=== PATIENT | male | born 1980 | race Caucasian/White ===

== ENCOUNTER → 2017-05-25 | Outpatient (CLI) | payer OTHER ==
[~2017-05-25] VITALS: Ht 189.2 cm; Wt 100.8 kg
[2017-05-25 15:44] VITALS: BP 122/74; PULSE 67; Ht 189.2 cm; Wt 100.8 kg
== END | disposition home or self-care (01) ==
LOC: C.NEUR 14:15
PROVIDERS: ATTEND Internal Medicine Pulmonary Disease
DX: G47.33 Obstructive sleep apnea (adult) (pediatric) (principal)

== ENCOUNTER → 2017-07-04 | Outpatient (CLI) | payer OTHER ==
--- NOTE | 2017-07-09 10:41 | Sleep Study ---
Sleep Study Report Date of Service: 07/04/2017 Sleep Study Report CLINICAL DATA: The patient is a 37-year-old male with a history of snoring, observed apnea, and fatigue. His Pat[place] Sleepiness Scale score is 8. His BMI is 28.14. On the evening of 07/04/2017 a home sleep apnea test was performed using the [employer] type 3 monitor. RECORDING RESULTS: The total recording time was 10:00 a.m.. Patient's estimated sleep time was 8: 00 a.m.. RESPIRATORY DATA: The patient had a total of 4 respiratory events, all hypopneas. Hypopneas were scored according to the 4% desaturation rule. The maximum respiratory event was 42 seconds. The apnea-hypopnea index was 0.5. This would suggest no significant sleep apnea. OXIMETRY DATA: The mean saturation for the night was 92%. The minimum saturation was 82%. There was a total of 12 minutes with saturations less than 89%. HEART RATE DATA: The minimum heart rate was 42 per minute. The mean heart rate was 57 per minute. SNORING DATA: Snoring was present throughout the test. IMPRESSIONS: NO EVIDENCE OF CLINICALLY SIGNIFICANT SLEEP APNEA ON THIS HOME SLEEP APNEA TEST COMMENTS: During 4 hours of this test, about half of the recorded time, the patient did not have the pulse oximeter on correctly. It read often on from approximately 11:15 p.m. until 3:15 a.m.. Thus the data is somewhat limited. However his breathing was regular in even throughout the night with just a few hypopneas being seen. RECOMMENDATIONS: 1. The patient has an irregular sleep-wake schedule in part related to his work. As much as possible he needs to have a regular sleep-wake schedule as well as allowing 7.5-8 hours of sleep time per night. 2. If snoring is a major issue for this patient consideration could be given to an ENT evaluation. 3. The patient should avoid sleeping in the supine position where there is typically more snoring. Copies To 1: Reji Mei DO; Rodolfo Watson, DO
== END | disposition home or self-care (01) ==
LOC: C.NEUR 10:57
PROVIDERS: ATTEND Internal Medicine Pulmonary Disease
DX: R41.840 Attention and concentration deficit (principal); R53.83 Other fatigue; R45.4 Irritability and anger; R41.3 Other amnesia; G47.33 Obstructive sleep apnea (adult) (pediatric); R40.0 Somnolence; G47.00 Insomnia, unspecified